=== PATIENT | male | born 1985 ===

== ENCOUNTER 2019-01-27 19:16 | Emergency (ER) | payer SELFPAY ==
[2019-01-27] MEDS ORDERED: CEPHALEXIN 500 MG CAPSULE PO STA (20:03)
[2019-01-27] MEDS ORDERED: Diph,Pert(Acell),Tet Vac 0.5 ML SYR IM ONE (20:03)
--- NOTE | 2019-01-27 20:04 | Emergency Department Record ---
History of Present Illness - General Chief complaint: Extremity Problem Stated complaint: SMASHED FINGER AT WORK Time Seen by Provider: 01/27/19 19:59 Source: Patient Mode of Arrival: Ambulatory Limitations: No limitations - History of Present Illness Initial comments: The patient is here due to smashing his R 4th and 5th fingers in between 2 objects 20 hours ago at work. Since he has had R 4th and 5th finger pain. He does have a PW to the 5th finger pad but no bleeding. The patient denies any numbness or weakness and has had normal ROM. His Td is not UTD. The patient did injure it at the start of his shift at the [employer] yesterday and did work his entire shift with it. 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 MD Complaint: Extremity pain, Other Onset/Timin -: Hour(s) Location: Right, Hand History of Same: No Radiation: Proximal Severity scale (1-10): 5 Quality: Crushing - Related Data Previous Rx's Medication Instructions Recorded Cephalexin [Keflex] 500 mg PO QID #28 cap 01/27/19 Allergies Allergy/AdvReac Type Severity Reaction Status Date / Time No Known Drug Allergies Allergy Verified 01/27/19 19:41 Travel Screening - Travel/Exposure Within Last 30 Days Have you traveled within the last 30 days?: No - Travel Symptoms Symptom Screening: None Review of Systems Constitutional: Denies: Chills, Fever Eyes: Denies: Eye discharge ENT: Denies: Congestion Respiratory: Denies: Cough, Dyspnea Past Medical History - SOCIAL HISTORY Smoking Status: Never smoker Alcohol Use: Occasional Drug Use: None - RESPIRATORY Hx Respiratory Disorders: No - CARDIOVASCULAR Hx Cardio Disorders: No - NEURO Hx Neuro Disorders: No - GI Hx GI Disorders: No - Hx Genitourinary Disorders: No - ENDOCRINE Hx Endocrine Disorders: No - MUSCULOSKELETAL Hx Musculoskeletal Disorders: No - PSYCH Hx Psych Problems: No - HEMATOLOGY/ONCOLOGY Hx Hematology/Oncology Disorders: No Family Medical History Any Significant Family History?: No Family Hx Comment (NOT TO BE USED IN PLACE OF ITEMS BELOW): denies Physical Exam - General General Appearance: Alert, Oriented x3, Cooperative, No acute distress - Head Head exam: Atraumatic - Eye Eye exam: Normal appearance - Extremities Extremities exam: Full ROM, Tenderness (There is diffuse R 5th finger tenderness.), Other (The PW over the finger pad is only 3 mm wide. The patient did have a "blood blister" there that he "popped" due to pain and pressure over the finger pad.). negative: Normal inspection (There is very mild swelling to the R 4th finger and mild swelling diffusely to the R 5th finger. There are abrasions dorsally and anteriorly with a PW to the 5th finger pad. There is no malrotation on finger flexion. The patient has normal sensation to the finger.) - Neurological Neurological exam: Alert. negative: Motor sensory deficit Course Vital Signs 01/27/19 19:35 Temperature 98.8 F Pulse Rate [ 68 Left] Respiratory 16 Rate Blood Pressure 126/76 [Left] Pulse Ox 98 - Reevaluation(s) Reevaluation #1: I did discuss the need to keep the finger clean and dressed with Abx ointment and splinted due to the minor fracture. He is to be off work the rest of this shift and see the [employer] comp tomorrow. 01/27/19 20:25 Medical Decision Making - Data Complexity MDM Data: X-Ray Ordered and/or Reviewed - Radiology Data Radiology results: Report reviewed (L hand: Nondisplaced fx thru tuft of distal phalynx. O/W neg.) Disposition Disposition: Discharge Clinical Impression: Injury, fingers Qualifiers: Encounter type: initial encounter Laterality: right Qualified Code(s): S69.91XA - Unspecified injury of right wrist, hand and finger(s), initial encounter Disposition: Home, Self-Care Condition: (2) Stable Instructions: Finger Fracture (ED), Crush Injury (ED) Additional Instructions: Please take Tylenol or Motrin for pain and continue the Keflex. Please keep antibiotic ointment on the wounds with a bandaid until healed and wear the finger splint for 2 weeks. Please see the [facility] [employer] people tomorrow for further evaluation. Prescriptions: Cephalexin [Keflex] 500 mg PO QID #28 cap Forms: Patient Portal Access Time of Disposition: 20:18 Quality - Quality Measures Quality Measures: N/A - Blood Pressure Screening View Details: Yes Does Patient Have Any of the Following: No Blood Pressure Classification: Hypertensive Reading Systolic Measurement: 138 Diastolic Measurement: 98 Screening for High Blood Pressure: < First Hypertensive BP, F/U Documented > [G8950] First Hypertensive Follow-up Interventions: Referral to alternative/primary care provider.
--- NOTE | 2019-01-27 20:20 | RADIOLOGY REPORT ---
EXAMINATION: Right Hand, Minimum Three Views EXAM DATE: 01/27/2019 8:13 PM INDICATION: Pinky Injury ENCOUNTER: Initial FINDINGS: There is a nondisplaced fracture through the tuft of the distal phalanx of the fifth digit. No other acute bone abnormality. Dictated by: Douglas Everett MD on 01/27/2019 8:17 PM. .
[2019-01-27 21:16] LABS: AMPHETAMINE SCREEN URINE NOT DETECTED; BARBITURATE SCREEN URINE NOT DETECTED; BENZODIAZEPINE SCREEN URINE NOT DETECTED; COCAINE SCREEN URINE NOT DETECTED; METHADONE SCREEN URINE NOT DETECTED; METHAMPHETAMINE SCREEN NOT DETECTED; OPIATE SCREEN URINE NOT DETECTED; OXYCODONE SCREEN URINE NOT DETECTED; PHENCYCLIDINE SCREEN URINE NOT DETECTED; PROPOXYPHENE SCREEN URINE NOT DETECTED; THC SCREEN URINE NOT DETECTED; TRICYCLIC ANTIDEPRESSANT SCRN NOT DETECTED
== END 2019-01-27 21:00 | disposition home or self-care (01) ==
LOC: ER 19:16
DX: S62.666A Nondisplaced fracture of distal phalanx of right little finger, initial encounter for closed fracture (principal); W23.0XXA Caught, crushed, jammed, or pinched between moving objects, initial encounter; Y92.63 Factory as the place of occurrence of the external cause; Y99.0 Civilian activity done for income or pay
CPT/HCPCS: 80305; 90715; 96372; 99284